=== PATIENT | male | born 1940 | race Caucasian/White ===

== ENCOUNTER 2024-12-12 18:43 | Emergency (ER) | payer MEDICARE, OTHER ==
[~2024-12-12 18:43] MED LIST: Iopamidol 370 76% 100 ML VIAL ONE
[2024-12-12] MEDS ORDERED: Furosemide 20 MG (2 mL) VIAL ONE (19:47)
[2024-12-12 20:10] LABS: ALT (SGPT) 18 U/L (Less than 45); AST (SGOT) 28 U/L (11-34); Albumin 3.0 g/dL (3.1-4.5); Alkaline Phosphatase 142 U/L (40-110); Anion Gap 18 mmol/L (10-20); BUN (Urea Nitrogen) 15 mg/dL (8.4-25.7); Bilirubin, Total 0.6 mg/dL (0.3-1.2); Calc. Creatinine Clearance 0 mL/min (70-130); Calcium 8.7 mg/dL (7.8-10.44); Carbon Dioxide 22 mmol/L (23-31); Chloride 102 mmol/L (98-107); Globulin 4.4 g/dL (2.4-3.5); Glucose 105 mg/dL (83-110); Potassium 3.6 mmol/L (3.5-5.1); Sodium 138 mmol/L (136-145)
[2024-12-12 20:12] LABS: #Basophils 0.1 thou/uL (0.0-0.2); #Eosinophils 0.0 thou/uL (0.0-0.7); #Lymphocytes 1.3 thou/uL (1.20-3.40); #Monocytes 1.1 thou/uL (0.11-0.59); #Neutrophils 2.3 thou/uL (1.40-6.50); %Basophils 1.1 % (0.0-1.0); %Eosinophils 0.7 % (0.0-10.0); %Lymphocytes 27.6 % (21.0-51.0); %Monocytes 22.5 % (0.0-10.0); %Neutrophils 48.1 % (42.0-75.0); Hematocrit 36.7 % (42.0-52.0); Hemoglobin 12.7 g/dL (14.0-18.0); Mean Corpuscular Hemoglobin 28.9 pg (27.0-31.0); Mean Corpuscular Volume 83.3 fl (78.0-98.0); Platelet Count 544 10x3/uL (130-400); Red Blood Cell (RBC) Count 4.41 mill/uL (4.70-6.10); Troponin I 0.011 ng/mL (< 0.028); White Blood Cell (WBC) Count 4.8 10x3/uL (4.8-10.8)
[2024-12-12] MEDS ORDERED: Colchicine 0.6 MG TAB ONE (20:13)
[2024-12-12 20:39] LABS: Glucose, Urine (Dipstick) Negative (Negative); Leukocyte Negative (Negative); Protein, Urine (Dipstick) 30 mg/dL (Neg-Trace); Specific Gravity, Urine 1.015 (1.005-1.030)
[2024-12-12 20:44] LABS: CAUTI Indications for Culture Dysuria,urgency,freq; RBC/HPF 0-3 HPF (0-3); WBC/HPF None Seen HPF (0-3)
[2024-12-12 20:45] LABS: Urine Culture Reflex No No
== END 2024-12-12 22:46 | disposition short-term general hospital (02) ==
LOC: NAV ERS 18:43
DX: M79.89 Other specified soft tissue disorders (principal); R06.00 Dyspnea, unspecified; R01.1 Cardiac murmur, unspecified; I10 Essential (primary) hypertension; Z87.891 Personal history of nicotine dependence; Z79.899 Other long term (current) drug therapy
CPT/HCPCS: 71045; 71275; 80053; 81001; 83880; 84443; 84484; 84550; 85025; 85379; 93005; 96374; J1940; Q9967